=== PATIENT | female | born 1985 | race African-American/Black ===

== ENCOUNTER 2021-12-19 20:41 | Emergency (ER) | payer MEDICAID, SELFPAY ==
[2021-12-19] MEDS ORDERED: diphenhydrAMINE 50 MG/ML VIAL ONE (21:41)
[2021-12-19] MEDS ORDERED: Metoclopramide HCl 10 MG/2 ML VIAL ONE (21:41)
== END 2021-12-20 00:30 | disposition home or self-care (01) ==
LOC: CSHERS 20:41
DX: G51.0 Bell's palsy (principal)
CPT/HCPCS: 70450; 96374; 96375; J1200; J2765

== ENCOUNTER 2021-12-25 12:17 | Emergency (ER) | payer MEDICAID | END 2021-12-25 13:46 | disposition home or self-care (01) | LOC: CSHERS 12:17 | DX: G50.0 Trigeminal neuralgia (principal); I10 Essential (primary) hypertension | CPT/HCPCS: 99283 ==

== ENCOUNTER 2022-02-08 10:52 | Emergency (ER) | payer MEDICAID | END 2022-02-08 11:40 | disposition home or self-care (01) | LOC: CSHERS 10:52 | DX: L03.116 Cellulitis of left lower limb (principal); I10 Essential (primary) hypertension | CPT/HCPCS: 99283 ==

== ENCOUNTER 2022-11-07 08:51 | Emergency (ER) | payer MEDICAID, OTHER, SELFPAY ==
[2022-11-07] MEDS ORDERED: Metoclopramide HCl 10 MG/2 ML VIAL ONE (09:48)
[2022-11-07] MEDS ORDERED: levETIRAcetam 500 MG/5 ML VIAL ONE (09:49)
[2022-11-07 11:08] LABS: #Eosinphils 0.1 10x3/uL (0.0-0.5); #Monocytes 0.4 10x3/uL (0.0-1.1); #Neutrophils 2.3 10x3/uL (1.5-8.4); %Basophils 0.4 % (0.0-2.0); %Lymphocytes 42.8 % (18.0-47.0); %Monocytes 8.8 % (0.0-10.0); Hemoglobin 13.8 g/dL (12.0-15.5); Mean Corpuscular HGB CONC 31.3 g/dL (32.0-36.0); Mean Corpuscular Hemoglobin 25.8 pg (27.0-33.0); Mean Corpuscular Volume 82.4 fl (81.6-98.3); Mean Platelet Volume 10.9 fl (7.4-10.4); Platelet Count 235 10x3/uL (150-450); RBC Distribution Width 13.2 % (11.5-14.5); Red Blood Cell (RBC) Count 5.35 10x6/uL (3.90-5.03); White Blood Cell (WBC) Count 4.9 10x3/uL (3.5-10.5)
[2022-11-07 11:20] LABS: BHCG - Serum Negative (NEGATIVE); Pregs Control Background? CLEAR/WHITE (CLR/WHITE); Pregs Control Bar Appear? YES (CONTROL BAR)
[2022-11-07 11:25] LABS: Anion Gap 13 mmol/L (10-20); BUN (Urea Nitrogen) 11 mg/dL (7.0-18.7); Calc. Creatinine Clearance 0 mL/min (70-130); Calcium 9.1 mg/dL (7.8-10.44); Carbon Dioxide 25 mmol/L (22-29); Chloride 105 mmol/L (98-107); Estimated GFR 103; Glucose 104 mg/dL (70-105); Magnesium 1.6 mg/dL (1.6-2.6); Potassium 3.7 mmol/L (3.5-5.1); Sodium 139 mmol/L (136-145)
== END 2022-11-07 12:08 | disposition home or self-care (01) ==
LOC: CSHERS 08:51
DX: R56.9 Unspecified convulsions (principal)
CPT/HCPCS: 36415; 80048; 83735; 84703; 85025; 93005; 96365; 96375; J1953; J2765